=== PATIENT | male | born 1990 | race Caucasian/White ===

== ENCOUNTER → 2019-04-13 09:44 | Outpatient (CLI) | payer OTHER, MEDICAID, SELFPAY | PROVIDERS: Visit Provider Physician Assistant | DX: L03.316 Cellulitis of umbilicus (principal); R19.8 Other specified symptoms and signs involving the digestive system and abdomen | CPT/HCPCS: 87070; 87077; 87186; 87205 ==

== ENCOUNTER → 2019-04-13 09:55 | Outpatient (CLI) | payer OTHER, MEDICAID, SELFPAY | PROVIDERS: Visit Provider Physician Assistant | DX: R10.815 Periumbilic abdominal tenderness (principal); Z53.9 Procedure and treatment not carried out, unspecified reason ==

== ENCOUNTER → 2019-04-14 09:43 | Outpatient (CLI) | payer OTHER, MEDICAID, SELFPAY ==
--- NOTE | 2019-04-14 09:45 | DI.US.S_ITS ---
PROCEDURE: US ABDOMEN LIMITED INDICATIONS: PERIUMBILICAL PAIN W/CELLULITUS AND GUARDING, R/O ABSCESS TECHNIQUE: Real-time focused scanning was performed of the abdomen, with image documentation. COMPARISON: None. FINDINGS: At the umbilicus itself there is a hypoechoic area with increased vascularity measuring up to 1.7 x 1.7 x 1.1 cm, and slightly separate from the umbilicus is a hypoechoic area in the fatty soft tissues measuring up to 1.3 x 1.0 cm, without internal fluid. IMPRESSION: The findings may reflect presence of omphalitis or neoplasm. There is abnormal soft tissue thickening and increased vascularity as can be seen in each of the above potential etiologies. Given these findings very close clinical followup is recommended and a surgical consultation may be warranted. Followup by advance imaging such as CT or MR scanning may become necessary. Dictated by: Meir Bain M.D. on 04/14/2019 at 11:38 Approved by: Meir Bain M.D. on 04/14/2019 at 11:41
== END ==
PROVIDERS: Visit Provider Physician Assistant
DX: L03.316 Cellulitis of umbilicus (principal); R10.33 Periumbilical pain
CPT/HCPCS: 76705

== ENCOUNTER 2019-04-15 17:37 | Emergency (ER) | payer OTHER, MEDICAID, SELFPAY ==
--- NOTE | 2019-04-15 00:18 | DI.CT.S_ITS ---
PROCEDURE: CT ABDOMEN PELVIS W CON INDICATIONS: draining umbilical lesion, see US report TECHNIQUE: After the administration of intravenous contrast, 5 mm thick sections acquired from the diaphragm to the symphysis. 5 mm coronal and sagittal reformats were acquired. For radiation dose reduction, the following was used: automated exposure control, adjustment of mA and/or kV according to patient size. COMPARISON: None. FINDINGS: Image quality: Excellent. ABDOMEN: Lung bases: Lung bases are clear. Heart size is normal. Solid organs: Liver is normal in size and enhancement. Diffuse fatty infiltration of the liver. Gallbladder is within normal limits. Biliary system is non dilated. Pancreas enhances normally. Spleen is normal in size and enhancement. No adrenal nodules. Kidneys demonstrate normal size and enhancement, without hydronephrosis. Peritoneum and bowel: Bowel loops demonstrate normal wall thickness and caliber. No free fluid or air. The appendix is normal. Nodes and vessels: No retroperitoneal or mesenteric adenopathy by size criteria. Aorta and inferior vena cava are normal in size. Miscellaneous: Small fat-containing umbilical hernia. There is mild skin thickening involving the umbilicus which may represent postsurgical change. Trace amount of fluid is noted in the umbilicus and in the abdominal wall deep to the umbilicus. No inflammatory changes identified adjacent to the umbilicus. PELVIS: Genitourinary: Bladder wall thickness is normal. Miscellaneous: No inguinal hernias or adenopathy. Bones: No suspicious bony lesions. No vertebral body compression fractures. IMPRESSION: 1. Mild umbilical skin thickening and trace amount of nonspecific fluid within the umbilicus. No abscess identified. 2. No free intraperitoneal fluid or air. 3. No dilated loops of bowel. 4. Hepatic steatosis. Dictated by: Rabia Conte MD, PhD on 04/16/2019 at 7:33 Approved by: Rabia Conte MD, PhD on 04/16/2019 at 7:38
[2019-04-15 18:15] VITALS: BP 135/85; PULSE 97; RESP 15; TEMP 37.5; O2SAT 97; BMI 34.2
--- NOTE | 2019-04-15 21:39 | ED.WOUNDLAC ---
HPI - Wound/Laceration General Chief Complaint: Wound/Laceration Stated Complaint: states infected umbilical area, now bleeding Time Seen by Provider: 04/15/19 21:39 Source: patient Mode of arrival: Ambulatory History of Present Illness HPI narrative: 28-year-old gentleman presents with drainage and bleeding from his umbilicus. He states he had a laparoscopic surgery at the age of 13 in [place] and has intermittent problems with drainage discharge in bleeding from the umbilical site ever since. Over the last week it has gotten worse he was seen 4 days ago in urgent care and an ultrasound was ordered. He does not have any fevers, he has been having normal bowel movements, no belly pain he is noting bloody and serosanguineous fluid draining from his umbilicus Related Data Allergies Allergy/AdvReac Type Severity Reaction Status Date / Time No Known Drug Allergies Allergy Verified 04/15/19 18:15 Review of Systems Review of Systems Narrative: Denies ? fever ? cough ? cold ? chills ? chest pain ? dyspnea ? orthopnea ? wheezing ? abdominal pain ? change to bowel or bladder habits ? nausea vomiting ? skin changes ? rashes Patient History Medical History Cellulitis (Acute) Exam Narrative Exam Narrative: General: Alert appropriate in no acute distress Respiratory: Able to speak in full sentences, no obvious respiratory distress Skin: No obvious rashes, warm and dry Umbilical area: Bloody serosanguineous discharge without surrounding cellulitis Neurologic: Grossly intact no obvious asymmetries or abnormalities Psych, appropriate insight and affect, cooperative Initial Vital Signs Initial Vital Signs: Vital Signs Temperature 99.5 F 04/15/19 18:15 Pulse Rate 97 H 04/15/19 18:15 Respiratory Rate 15 04/15/19 18:15 Blood Pressure 135/85 04/15/19 18:15 Pulse Oximetry 97 04/15/19 18:15 Course Orders Ordered: ED Orders 04/15/19 23:25 Complete Blood Count AUTO DIFF Stat Comprehensive Metabolic Panel Stat Discontinued Medications Bacitracin (Bacitracin) 2 applic TOP NOW ONE Stop: 04/16/19 02:57 Last Admin: 04/16/19 03:00 Dose: 2 applic Documented by: Vital Signs Vital signs: Vital Signs - 8 hr 04/15/19 22:49 04/16/19 00:38 Pulse Rate 79 77 Respiratory Rate 18 Blood Pressure [Right Arm] 128/86 119/76 Pulse Oximetry 99 99 MDM - Wound/Laceration Medical Records Attestation: I reviewed the patient's medical records. Lab Data Attestation: I reviewed the patient's lab results. Result diagrams: 04/15/19 23:25 04/15/19 23:25 Labs: Lab Results 04/15/19 04/15/19 Range/Units 23:25 23:25 WBC 9.3 (4.5-11.0) X10^3/uL RBC 5.33 (4.5-5.9) X10^6/uL Hgb 15.8 (13.5-17.5) g/dL Hct 46.8 (41-53) % MCV 87.8 (80-100) fL MCH 29.7 (26-34) PG MCHC 33.9 (30-36) % RDW 13.4 (11.6-14.8) % Plt Count 259 (150-400) X10^3/uL Neut % (Auto) 55.3 (50-75) % Lymph % (Auto) 35.3 (25-40) % [place] % (Auto) 7.1 (3-14) % Eos % (Auto) 1.5 L (2-4) % Baso % (Auto) 0.8 (0-2) % Neut # (Auto) 5100 (0939-9304) /uL Lymph # (Auto) 3300 (1433-1877) /uL [place] # (Auto) 700 (0-900) /uL Eos # (Auto) 100 (0-450) /uL Baso # (Auto) 100 (0-100) /uL Sodium 140 (137-145) mmol/L Potassium 3.9 (3.4-5.1) mmol/L Chloride 101 (98-107) mmol/L Carbon Dioxide 28 (22-32) mmol/L BUN 13 (9-20) mg/dL Creatinine 0.90 (0.66-1.25) mg/dL Estimated GFR > 60.0 (>60) mL/min BUN/Creatinine Ratio 14.4 (6-22) Glucose 103 H (70-100) mg/dL Calcium 9.5 (8.4-10.2) mg/dL Total Bilirubin 0.4 (0.2-1.3) mg/dL AST 35 (17-59) IU/L ALT 60 H (<50) IU/L Alkaline Phosphatase 60 (38-126) U/L Total Protein 8.1 (6.3-8.2) g/dL Albumin 4.5 (3.5-5.0) g/dL Globulin 3.6 (1.7-4.1) g/dL Albumin/Globulin Ratio 1.3 (1.0-2.8) Imaging Data US - abdomen: Radiologist's Impression: General: Alert appropriate in no acute distress Respiratory: Able to speak in full sentences, no obvious respiratory distress Skin: No obvious rashes, warm and dry Neurologic: Grossly intact no obvious asymmetries or abnormalities Psych, appropriate insight and affect, cooperative CT scan - abdomen/pelvis: Radiologist's Impression: Radiology read per Dr. Philip Ricardo Mild skin thickening in the region of the umbilicus. There is an associated tiny amount of nonspecific fluid within the umbilical tract Small fat containing umbilical hernia no evidence of bowel containing hernia No evidence of bowel obstruction or free air MDM Narrative Medical decision making narrative: Chronically draining wound of around the umbilicus without cellulitis abscess or fistula. The area is more erythematous so will opt to treat with antibiotics as well as topical antibiotics and general wound care. Referral to [facility] for outpatient consultation for definitive treatment Discharge Plan Departure Patient Disposition: Home Clinical Impression: Open wound of umbilical region Qualifiers: Encounter type: initial encounter Qualified Code(s): S31.105A - Unspecified open wound of abdominal wall, periumbilic region without penetration into peritoneal cavity, initial encounter Instructions: DI for Wound Infection Activity Restrictions/Additional Instructions: Thank you for coming in today The CT scan suggests that there's some swelling in the skin with chronic drainage from your belly button. This is not associated with an abscess or connected to deeper structures inside your belly. I am going to suggest antibiotics, Keflex 500 mg 3 times a day for 7 days as you are having slight increased drainage and pain. I will also recommend that you follow-up with our general surgeon for an outpatient consultation to see what definitive treatment they recommend for the chronically draining belly button If you notice there is more drainage, more pain, increasing redness you do need to return to the emergency room for additional evaluation Referrals: Martín Beckman MD [Physician] -
[2019-04-15 22:49] VITALS: BP 128/86; PULSE 79; O2SAT 99
[2019-04-15 23:37] LABS: Add Manual Diff / Slide Review NO; Basophils Absolute Auto 100 /uL (0-100); Basophils Percent Auto 0.8 % (0-2); Eosinophils Absolute Auto 100 /uL (0-450); Eosinophils Percent Auto 1.5 % (2-4); Hematocrit 46.8 % (41-53); Hemoglobin 15.8 g/dL (13.5-17.5); Lymphocytes Absolute Auto 3300 /uL (1100-4500); Lymphocytes Percent Auto 35.3 % (25-40); Mean Corpuscular HGB Conc 33.9 % (30-36); Mean Corpuscular Hemoglobin 29.7 PG (26-34); Mean Corpuscular Volume 87.8 fL (80-100); Monocytes Absolute Auto 700 /uL (0-900); Monocytes Percent Auto 7.1 % (3-14); Neutrophils Absolute Auto 5100 /uL (1500-7000); Neutrophils Percent Auto 55.3 % (50-75); Platelet Count 259 X10^3/uL (150-400); Red Blood Cell Count 5.33 X10^6/uL (4.5-5.9); Red Cell Distribution Width 13.4 % (11.6-14.8); White Blood Cell Count 9.3 X10^3/uL (4.5-11.0)
[2019-04-15 23:41] LABS: Alanine Aminotransferase 60 IU/L (<50); Albumin 4.5 g/dL (3.5-5.0); Albumin Globulin Ratio 1.3 (1.0-2.8); Alkaline Phosphatase 60 U/L (38-126); Aspartate Aminotransferase 35 IU/L (17-59); BUN Creatinine Ratio 14.4 (6-22); Bilirubin Total 0.4 mg/dL (0.2-1.3); Blood Urea Nitrogen 13 mg/dL (9-20); Calcium 9.5 mg/dL (8.4-10.2); Carbon Dioxide 28 mmol/L (22-32); Chloride 101 mmol/L (98-107); Estimated Glomerular Filt Rate > 60.0 mL/min (>60); Globulin 3.6 g/dL (1.7-4.1); Glucose 103 mg/dL (70-100); HEMOLYSIS < 15 (0-50); Potassium 3.9 mmol/L (3.4-5.1); Sodium 140 mmol/L (137-145); Total Protein 8.1 g/dL (6.3-8.2)
[2019-04-16 00:38] VITALS: BP 119/76; PULSE 77; RESP 18; O2SAT 99
[2019-04-16] MEDS: BACITRACIN OINT 0.9 GM PCKT 2 APPLIC TOP (03:00)
[2019-04-16 03:02] VITALS: BP 117/72; PULSE 72; RESP 18; O2SAT 99
== END 2019-04-16 03:11 | disposition home or self-care (01) ==
PROVIDERS: Emergency Provider Emergency Medicine
DX: S31.105A Unspecified open wound of abdominal wall, periumbilic region without penetration into peritoneal cavity, initial encounter (principal)
CPT/HCPCS: 36415; 74177; 80053; 85025; 99284; Q9967

== ENCOUNTER → 2019-11-20 09:44 | Outpatient (CLI) | payer OTHER, MEDICAID, SELFPAY ==
[2019-11-21 06:10] LABS: COVID19 Sendout Not Detected (Not Detect)
== END ==
PROVIDERS: PCP Nurse Practitioner Family; Visit Provider Physician Assistant
DX: Z11.59 Encounter for screening for other viral diseases (principal)
CPT/HCPCS: 87635

== ENCOUNTER 2019-11-23 06:33 | Day surgery (SDC) | payer OTHER, MEDICAID, SELFPAY ==
[2019-11-19 14:09] VITALS: BMI 41.0
[2019-11-23] VITALS (7 sets, daily range): BP systolic 112–119; BP diastolic 64–79; PULSE 73–85; RESP 12–19; TEMP 36.4–36.9; O2SAT 96–99; BMI 38.9
--- NOTE | 2019-11-23 | PATH_ITS ---
[facility] Accession Number: [id number] . 01 Material submitted: . body - UMBILICAL SINUS TRACT . 02 Diagnosis: Umbilical Sinus Tract, Excision: Consistent with sinus tract. No evidence of neoplasm. [facility] 11/25/2019 1104 Local . 02 Electronically signed: . Sarthak Minaya MD, PhD, Pathologist NPI- [id number] . 01 Gross description: . Received in formalin, labeled umbilical sinus tract, is a 1.1 x 1.0 cm goodwin skin excised to a depth of 2.0 cm. There is a 0.5 x 0.2 cm central defect. The margin is inked blue, the defect is inked black, the specimen is serially sectioned and entirely submitted in cassettes A1 and A2. ([id number]) /[facility] 11/25/2019 1103 Local . 02 Pathologist provided ICD-10: K42.9 . 02 CPT . 316371 Performed at: 01 [facility] [address], [place], [place] [id number] MD Enmanuel Weiss MD Phone: [phone] Performed at: 02 [facility] [address] [place], [place] [id number] MD Caprice Barnett MD Phone: [phone]
--- NOTE | 2019-11-23 07:32 | PM.PREOP ---
Pre-operative Note COVID-19 COVID-19 status: Negative Interval Note History & Physical reviewed/Exam performed by Physician: Yes Changes to H&P: No
[2019-11-23] MEDS: LACTATED RINGERS 1,000 ML 42 ML IV (07:34)
[2019-11-23] MEDS: CEFAZOLIN 2 GM/100 ML FROZ.PIGGY IV (07:50)
--- NOTE | 2019-11-23 08:00 | SUR.OPER ---
Supine on padded OR bed, head on pillow, arms secured on padded arm boards at <90 degrees abduction, legs uncrossed, safety belt at thigh, tape over blanket over lower legs.
[2019-11-23] MEDS: BUPIVACAINE 0.25% (PF) VIAL 30 ML INJ (08:07)
--- NOTE | 2019-11-23 09:00 | P.OP_ITS ---
Operative Date/Time/Diagnoses Date of procedure: 11/23/19 Time of procedure: 09:01 Pre-op diagnosis: Umbilical hernia Umbilical sinus Post-op diagnosis: same Procedure & Clinicians Procedure: Open umbilical hernia repair Same procedure as scheduled: Yes Indications: 29-year-old male who [place] 13 has a subsequent umbilical hernia and a chronic draining umbilical sinus tract. Surgeon: Martín Beckman Anesthesia Type: General Operative Notes Findings: Chronic umbilical sinus tract. Umbilical fascial defect approximately 1/2 cm Specimen(s): other (Umbilical sinus tract) Estimated Blood Loss (mL): 20 Procedure in detail: Patient was brought to the operating room placed supine on the table. Bilateral lower extremity compression devices were applied. General anesthesia was inducedand they were intubated with an endotracheal tube. They received 2 g of Ancef prior to skin incision. They were prepped and draped in sterile fashion. A time-out was performed ensure the correct patient procedure necessary equipment within the operating room. A curvilinear incision was made inferior to the umbilicus. The subcutaneous tissues were divided. The umbilical hernia was identified and was dissected off the umbilicus and circumferentially. The umbilical hernia sac was opened carefully using [place] and contained viable omentum. There was also a chronic umbilical sinus tract attached to the umbilicus that contained some purulence material that was excised off and passed off the field as specimen labeled sinus tract. The hernia sac was then closed with 3 0 Vicryl suture. The sac was reduced into the abdomen and the fascia was cleared from above. The main fascial defect was 1.5 cm in diameter . The fascial edges were then reapproximated with a [id number] 0 PDS suture. The subcutaneous tissues were reapproximated using 3 0 Vicryl skin closed with 4 0 Monocryl upon by the application of Dermabond and Steri-Strips. Sponge instrument count at the end of the operation was correct. Patient tolerated procedure well was extubated and transferred to postoperative care unit in stable condition. Complications: none Post-operative Condition: stable Disposition: same day surgery
[2019-11-23] MEDS: OXYCODONE/ACETAMINOPHEN 5/325 TABLET 1 TAB PO (09:28)
--- NOTE | 2019-11-23 09:35 | SUR.PHASEII ---
Medicated for pain, friend brought in d/c instructions discussed, all voiced an understanding.
== END 2019-11-23 10:00 | disposition home or self-care (01) ==
PROVIDERS: PCP Nurse Practitioner Family; Referring Provider Nurse Practitioner Family; Visit Provider Surgery
PROC: (CPT 49585; principal; 2019-11-23 07:45)
DX: K42.9 Umbilical hernia without obstruction or gangrene (principal); T81.83XA Persistent postprocedural fistula, initial encounter; E66.01 Morbid (severe) obesity due to excess calories; Z87.891 Personal history of nicotine dependence
CPT/HCPCS: 49585; J0690; J1100; J2405; J2704; J3010

== ENCOUNTER 2019-11-27 13:01 | Inpatient (IN) | payer OTHER, MEDICAID, SELFPAY ==
[2019-11-27] VITALS (22 sets, daily range): BP systolic 105–153; BP diastolic 54–91; PULSE 84–108; RESP 9–19; TEMP 35.5–37.9; O2SAT 94–99; BMI 25.4; BMI 39.8
--- NOTE | 2019-11-27 13:32 | DI.RAD.S_ITS ---
PROCEDURE: XR CHEST 1V INDICATIONS: suspected sepsis TECHNIQUE: One view of the chest was acquired. COMPARISON: [facility], CT, CT ABDOMEN PELVIS W CON, 04/16/2019, 0:08. FINDINGS: Surgical changes and devices: None. Lungs and pleura: An incomplete inspiratory result is noted, causing a crowded appearance to the lung markings. No focal infiltrates are seen. No pneumothorax or significant pleural effusions are seen. Mediastinum: Mediastinal contours appear normal. Heart size is normal. Bones and chest wall: No suspicious bony lesions. Overlying soft tissues appear unremarkable. IMPRESSION: Limited portable chest examination, without a significant cardiopulmonary abnormality identified. Dictated by: Samson Diaz M.D. on 11/27/2019 at 13:21 Approved by: Samson Diaz M.D. on 11/27/2019 at 13:22
[2019-11-27 13:39] LABS: Add Manual Diff / Slide Review NO; Basophils Absolute Auto 0 /uL (0-100); Basophils Percent Auto 0.3 % (0-2); Eosinophils Absolute Auto 0 /uL (0-450); Eosinophils Percent Auto 0.1 % (2-4); Hematocrit 46.7 % (41-53); Hemoglobin 15.6 g/dL (13.5-17.5); Lymphocytes Absolute Auto 1000 /uL (1100-4500); Lymphocytes Percent Auto 6.2 % (25-40); Mean Corpuscular HGB Conc 33.4 % (30-36); Mean Corpuscular Hemoglobin 29.8 PG (26-34); Mean Corpuscular Volume 89.3 fL (80-100); Monocytes Absolute Auto 1600 /uL (0-900); Neutrophils Absolute Auto 13500 /uL (1500-7000); Neutrophils Percent Auto 83.4 % (50-75); Platelet Count 257 X10^3/uL (150-400); Red Blood Cell Count 5.23 X10^6/uL (4.5-5.9); Red Cell Distribution Width 13.5 % (11.6-14.8); White Blood Cell Count 16.1 X10^3/uL (4.5-11.0)
[2019-11-27 13:41] LABS: INR 1.3 (0.9-1.3); Prothrombin Time 14.6 SECONDS (10.1-12.7)
--- NOTE | 2019-11-27 13:42 | ED_ITS ---
HPI - Fever General Chief Complaint: Fever Stated Complaint: Fever/Abdominal Pain post surgery Time Seen by Provider: 11/27/19 13:32 Source: patient Mode of arrival: Ambulatory Limitations: no limitations History of Present Illness HPI Narrative: Patient postop day 4 status post open umbilical hernia repair. Fever started 2 days ago. Watery diarrhea with nausea. Complains of headache as well. Abdominal surgical area painful and red. Small amount of discharge seeping through Steri-Strips. Denies any cough cold congestion sore throat. Related Data Previous Rx's Medication Instructions Recorded acetaminophen [Tylenol] 650 mg PO QID PRN #60 cap 11/23/19 oxycodone 5 mg PO Q6H PRN #30 tab 11/23/19 Allergies Allergy/AdvReac Type Severity Reaction Status Date / Time No Known Drug Allergies Allergy Verified 11/27/19 13:16 Review of Systems Review of Systems Narrative: GENERAL: Complains chills, fatigue, malaise, fever, sweats. HEENT: Denies sinus pain, ear pain, sore throat, difficulty swallowing, dizzin ess. RESPIRATORY: Denies dyspnea, cough, wheezing, hemoptysis, sputum. CARDIOVASCULAR: Denies chest pain, palpitations, orthopnea, edema, GASTROINTESTINAL: Complains of nausea, denies vomiting, complains of abdominal pain, diarrhea, denies constipation, melena. : Denies dysuria, frequency, incontinence, hematuria, urinary retention. MUSCULOSKELETAL: denies weakness, joint pain, or bony pain SKIN: Denies rash, skin lesions NEUROLOGIC: Denies weakness, headache, numbness, change in speech, confusion, seizures, incoordination. PSYCHIATRIC: No concerning psychosocial issues. ROS Unobtainable: All systems reviewed & are unremarkable except as noted in HPI and below Patient History Medical History ADHD (Chronic) Cellulitis (Acute) Obesity (Acute) Surgical History Anesthesia (Resolved) History of abdominoplasty (Resolved) Social History household members: friend(s) Smoking Status: Former smoker Smoking Status: Former smoker alcohol intake frequency: a few times a month Substance Use Type: does not use Exam Narrative Exam Narrative: GENERAL: patient appears stated age. Well-nourished, well- developed patient, in no distress, not toxic HEAD: Atraumatic. Normocephalic. EYES: Pupils equal round and reactive. Extraocular motions intact. No scleral icterus. No injection or drainage. ENT: Nose without bleeding, purulent drainage. Throat without erythema, tonsillar hypertrophy or exudate. Airway patent. NECK: Trachea midline. Non tender CARDIOVASCULAR: Regular rate and rhythm without murmurs, gallops, or rubs. RESPIRATORY: Clear to auscultation. Breath sounds equal bilaterally. No wheezes, rales, or rhonchi. GASTROINTESTINAL: Abdomen soft, bowel sounds present. No peritoneal signs. There is erythema extending outwards from incision site at the umbilical area. Palm size. Odorous smell around this area. Slight greenish discharge from incision site underneath the Steri-Strips EXTREMITIES: No edema or joint tenderness. BACK: Nontender without deformity or crepitance. No flank tenderness. NEURO: AOx4. PSYCH: Not anxious, is cooperative Initial Vital Signs Initial Vital Signs: Vital Signs Temperature 100.2 F H 11/27/19 13:16 Pulse Rate 108 H 11/27/19 13:16 Respiratory Rate 18 11/27/19 13:16 Blood Pressure 138/74 11/27/19 13:16 Pulse Oximetry 96 11/27/19 13:16 Course Course Course Narrative: Patient evaluated by surgeon in department and will admit Decision to Admit Date: 11/27/19 Decision to Admit time: 14:21 Orders Ordered: ED Orders 11/27/19 13:25 Complete Blood Count AUTO DIFF Stat Comprehensive Metabolic Panel Stat Lactate (Lactic Acid) Stat Lipase Stat Partial Thromboplastin Time Stat Procalcitonin Stat Prothrombin Time INR Stat 11/27/19 13:32 XR chest 1V Stat EKG-12 Lead Stat 11/27/19 13:49 CT abdomen pelvis w con Stat 11/27/19 13:50 Blood Culture Stat 11/27/19 14:18 COVID19 -ED/INPAT/OR/L&D Stat Lactated Ringer's (Lactated Ringers) 1,000 mls @ 125 mls/hr IV CONT USHA Last Admin: 11/27/19 16:26 Dose: 125 mls/hr Documented by: SLUND Cefazolin Sodium 3 gm/ Sodium (Chloride) 100 mls @ 200 mls/hr IV Q8H USHA Stop: 11/28/19 00:29 Last Admin: 11/27/19 16:46 Dose: 200 mls/hr Documented by: JOANN Morphine Sulfate (Morphine) 4 mg IV Q4HR PRN PRN Reason: Pain, Severe (7-10) Naloxone HCl (Narcan) 0.2 mg IV Q2MIN PRN PRN Reason: Opiate Reversal Ondansetron HCl (Zofran) 4 mg IV Q4HR PRN PRN Reason: Nausea And Vomiting Discontinued Medications Enoxaparin Sodium (Lovenox) 40 mg SUBCUT NOW ONE Stop: 11/27/19 15:53 Last Admin: 11/27/19 16:45 Dose: 40 mg Documented by: JOANN Sodium Chloride (Normal Saline 0.9%) 1,000 mls @ 1,000 mls/hr IV BOLUS ONE Stop: 11/27/19 14:31 Last Admin: 11/27/19 16:25 Dose: Not Given Documented by: JOANN Sodium Chloride (Normal Saline 0.9%) 2,626.29 mls @ 875.43 mls/hr 30 ml/kg infuse over 3 hr (2626.29 ml) IV NOW ONE Stop: 11/27/19 16:37 Last Infusion: 11/27/19 15:09 Dose: 875.43 mls/hr Documented by: Admin: 11/27/19 13:45 Dose: 875.43 mls/hr Documented by: CAMI Piperacillin/Tazobactam/Dextrose (Zosyn) 4.5 gm in 100 mls @ 200 mls/hr IV NOW ONE Stop: 11/27/19 14:07 Last Infusion: 11/27/19 14:30 Dose: 0 mls/hr Documented by: Admin: 11/27/19 13:57 Dose: 200 mls/hr Documented by: CAMI Ibuprofen (Advil) 800 mg PO NOW ONE Stop: 11/27/19 13:42 Last Admin: 11/27/19 13:46 Dose: 800 mg Documented by: CAMI Reevaluation(s) Reevaluation #1: No new issues. Labs and imaging pending but has been admitted Time: 14:21 Consultations Consultation #1: Spoke with surgeon Dr. Bello, he has seen patient. Will admit Time: 14:22 Vital Signs Vital signs: Vital Signs - 8 hr 11/27/19 13:16 11/27/19 13:33 11/27/19 13:48 Temperature 100.2 F H Pulse Rate 108 H 105 H 103 H Respiratory Rate 18 19 Blood Pressure 138/74 153/67 H Pulse Oximetry 96 96 99 11/27/19 14:00 11/27/19 14:01 Temperature Pulse Rate 99 H 99 H Respiratory Rate 9 L 11 L Blood Pressure 118/76 Pulse Oximetry 99 98 MDM - Fever Differential Diagnosis Differential diagnosis: Likely community acquired pneumonia, sepsis and other (Postop wound infection) Medical Records Attestation: I reviewed the patient's medical records. Lab Data Attestation: I reviewed the patient's lab results. Result diagrams: 11/27/19 13:25 11/27/19 13:25 Labs: Lab Results 11/27/19 11/27/19 11/27/19 Range/Units 13:25 13:25 13:25 WBC 16.1 H (4.5-11.0) X10^3/uL RBC 5.23 (4.5-5.9) X10^6/uL Hgb 15.6 (13.5-17.5) g/dL Hct 46.7 (41-53) % MCV 89.3 (80-100) fL MCH 29.8 (26-34) PG MCHC 33.4 (30-36) % RDW 13.5 (11.6-14.8) % Plt Count 257 (150-400) X10^3/uL Neut % (Auto) 83.4 H (50-75) % Lymph % (Auto) 6.2 L (25-40) % Granite % (Auto) 10.0 (3-14) % Eos % (Auto) 0.1 L (2-4) % Baso % (Auto) 0.3 (0-2) % Neut # (Auto) 19249 H (8453-1119) /uL Lymph # (Auto) 1000 L (2302-4649) /uL Granite # (Auto) 1600 H (0-900) /uL Eos # (Auto) 0 (0-450) /uL Baso # (Auto) 0 (0-100) /uL PT 14.6 H (10.1-12.7) SECONDS INR 1.3 (0.9-1.3) APTT 30 (26.4-36.2) SECONDS Sodium (137-145) mmol/L Potassium (3.4-5.1) mmol/L Chloride (98-107) mmol/L Carbon Dioxide (22-32) mmol/L BUN (9-20) mg/dL Creatinine (0.66-1.25) mg/dL Estimated GFR (>60) mL/min BUN/Creatinine Ratio (6-22) Glucose (70-100) mg/dL Lactate (0.7-2.1) mmol/L Calcium (8.4-10.2) mg/dL Total Bilirubin (0.2-1.3) mg/dL AST (17-59) IU/L ALT (<50) IU/L Alkaline Phosphatase (38-126) U/L Total Protein (6.3-8.2) g/dL Albumin (3.5-5.0) g/dL Globulin (1.7-4.1) g/dL Albumin/Globulin Ratio (1.0-2.8) Lipase (23-300) U/L Procalcitonin 0.21 (<0.5) ng/mL COVID-19 PCR (Negative) 11/27/19 11/27/19 11/27/19 Range/Units 13:25 13:25 14:18 WBC (4.5-11.0) X10^3/uL RBC (4.5-5.9) X10^6/uL Hgb (13.5-17.5) g/dL Hct (41-53) % MCV (80-100) fL MCH (26-34) PG MCHC (30-36) % RDW (11.6-14.8) % Plt Count (150-400) X10^3/uL Neut % (Auto) (50-75) % Lymph % (Auto) (25-40) % Granite % (Auto) (3-14) % Eos % (Auto) (2-4) % Baso % (Auto) (0-2) % Neut # (Auto) (3404-3268) /uL Lymph # (Auto) (0738-3870) /uL Granite # (Auto) (0-900) /uL Eos # (Auto) (0-450) /uL Baso # (Auto) (0-100) /uL PT (10.1-12.7) SECONDS INR (0.9-1.3) APTT (26.4-36.2) SECONDS Sodium 135 L (137-145) mmol/L Potassium 4.2 (3.4-5.1) mmol/L Chloride 100 (98-107) mmol/L Carbon Dioxide 25 (22-32) mmol/L BUN 11 (9-20) mg/dL Creatinine 0.81 (0.66-1.25) mg/dL Estimated GFR > 60.0 (>60) mL/min BUN/Creatinine Ratio 13.6 (6-22) Glucose 105 H (70-100) mg/dL Lactate 1.4 (0.7-2.1) mmol/L Calcium 9.4 (8.4-10.2) mg/dL Total Bilirubin 1.0 (0.2-1.3) mg/dL AST 41 (17-59) IU/L ALT 81 H (<50) IU/L Alkaline Phosphatase 97 (38-126) U/L Total Protein 8.1 (6.3-8.2) g/dL Albumin 4.2 (3.5-5.0) g/dL Globulin 3.9 (1.7-4.1) g/dL Albumin/Globulin Ratio 1.1 (1.0-2.8) Lipase 68 (23-300) U/L Procalcitonin (<0.5) ng/mL COVID-19 PCR Negative (Negative) Imaging Data Chest x-ray: Radiologist's Impression: [address] [address] XRay Report Signed Patient: Kayden Crockett [facility]#: [id number] : 1990Acct:[id number] Age/Sex: te of Service: 11/27/19 Loc: VR16M-0 Accession Number: [id number] Procedure: XR chest 1V Ordering Provider: Ari Urbina MD PROCEDURE: XR CHEST 1V INDICATIONS: suspected sepsis TECHNIQUE: One view of the chest was acquired. COMPARISON: [facility], CT, CT ABDOMEN PELVIS W CON, 04/16/2019, 0:08. FINDINGS: Surgical changes and devices: None. Lungs and pleura: An incomplete inspiratory result is noted, causing a crowded appearance to the lung markings. No focal infiltrates are seen. No pneumothorax or significant pleural effusions are seen. Mediastinum: Mediastinal contours appear normal. Heart size is normal. Bones and chest wall: No suspicious bony lesions. Overlying soft tissues appear unremarkable. IMPRESSION: Limited portable chest examination, without a significant cardiopulmonary abnormality identified. Dictated by: Samson Diaz M.D. on 11/27/2019 at 13:21 Approved by: Samson Diaz M.D. on 11/27/2019 at 13:22 CT scan - abdomen/pelvis: Radiologist's Impression: [place] [address] CT Scan Report Signed Patient: Kayden Crockett [facility]#: [id number] : 1990Acct:[id number] Age/Sex: MDate of Service: 11/27/19 Loc: OM82K-0 Accession Number: [id number] Procedure: CT abdomen pelvis w con Ordering Provider: Ari Urbina MD PROCEDURE: CT ABDOMEN PELVIS W CON INDICATIONS: IV contrast only/abdominal pain/fever/postop TECHNIQUE: After the administration of intravenous contrast, 5 mm thick sections acquired from the diaphragm to the symphysis. 5 mm coronal and sagittal reformats were acquired. For radiation dose reduction, the following was used: automated exposure control, adjustment of mA and/or kV according to patient size. COMPARISON: [facility], CT, CT ABDOMEN PELVIS W CON, 04/16/2019, 0:08. FINDINGS: Image quality: Excellent. ABDOMEN: Lung bases: Lung bases are clear. Heart size is normal. Solid organs: Liver is normal in size and enhancement. Gallbladder normal . Biliary system is non dilated. Pancreas enhances normally. Spleen is normal in size and enhancement. No adrenal nodules. Kidneys demonstrate normal size and enhancement, without hydronephrosis. Peritoneum and bowel: Bowel loops demonstrate normal wall thickness and caliber. No free fluid or air. Nodes and vessels: No retroperitoneal or mesenteric adenopathy by size criteria. Aorta and inferior vena cava are normal in size. Miscellaneous: No ventral hernias there is a inflammatory process near the umbilicus, at the abdomen/pelvis junction, containing fluid and gas, virtually extending to the skin surface which is thickened, and edematous. This appears to represent an area of phlegmon/abscess formation measuring up to 5.8 cm transverse and 6.33 cm AP, with a craniocaudad length of up to 6.0 cm posteriorly ventral to the rectus musculature, and tapering to the skin surface. PELVIS: Genitourinary: Bladder wall thickness is normal. Miscellaneous: No inguinal hernias or adenopathy. Bones: No suspicious bony lesions. No vertebral body compression fractures. IMPRESSION: Ventral body wall early abscess formation, centered on the area of cutaneous thickening and edema. Dictated by: Meir Bain M.D. on 11/27/2019 at 15:23 Approved by: Meir Bain M.D. on 11/27/2019 at 15:26 ECG Data Attestation: I personally reviewed and interpreted this ECG as follows: Interpretation: Sinus tachycardia otherwise normal EKG. Ventricular rate 105 MDM Narrative Medical decision making narrative: Patient to be admitted. Fever present. Cultures taken. Fever control done. Antibiotics started. Surgeon has evaluated and is admitting to his service, and planning for surgery. CT scan resulted Discharge Plan Departure Patient Disposition: Admitted as Observation Clinical Impression: Abdominal pain in male Discharge Date/Time: 11/27/19 15:36 Referrals: George Graff ARNP [Primary Care Provider] - Admit Date/Time: 11/27/19 14:21 Admit Provider: Chuck Bello
[2019-11-27 13:44] LABS: PTT Partial Thromboplastin Tim 30 SECONDS (26.4-36.2)
[2019-11-27] MEDS: SODIUM CHLORIDE 0.9% 875.43 ML IV (13:45)
[2019-11-27] MEDS: IBUPROFEN 400 MG TABLET 800 MG PO (13:46)
[2019-11-27 13:47] LABS: Alanine Aminotransferase 81 IU/L (<50); Albumin 4.2 g/dL (3.5-5.0); Albumin Globulin Ratio 1.1 (1.0-2.8); Alkaline Phosphatase 97 U/L (38-126); Aspartate Aminotransferase 41 IU/L (17-59); BUN Creatinine Ratio 13.6 (6-22); Blood Urea Nitrogen 11 mg/dL (9-20); Calcium 9.4 mg/dL (8.4-10.2); Carbon Dioxide 25 mmol/L (22-32); Chloride 100 mmol/L (98-107); Estimated Glomerular Filt Rate > 60.0 mL/min (>60); Globulin 3.9 g/dL (1.7-4.1); Glucose 105 mg/dL (70-100); HEMOLYSIS < 15 (0-50); Lipase 68 U/L (23-300); Potassium 4.2 mmol/L (3.4-5.1); Sodium 135 mmol/L (137-145); Total Protein 8.1 g/dL (6.3-8.2)
[2019-11-27 13:48] LABS: Lactate (Lactic Acid) 1.4 mmol/L (0.7-2.1)
--- NOTE | 2019-11-27 13:49 | DI.CT.S_ITS ---
PROCEDURE: CT ABDOMEN PELVIS W CON INDICATIONS: IV contrast only/abdominal pain/fever/postop TECHNIQUE: After the administration of intravenous contrast, 5 mm thick sections acquired from the diaphragm to the symphysis. 5 mm coronal and sagittal reformats were acquired. For radiation dose reduction, the following was used: automated exposure control, adjustment of mA and/or kV according to patient size. COMPARISON: [facility], CT, CT ABDOMEN PELVIS W CON, 04/16/2019, 0:08. FINDINGS: Image quality: Excellent. ABDOMEN: Lung bases: Lung bases are clear. Heart size is normal. Solid organs: Liver is normal in size and enhancement. Gallbladder normal . Biliary system is non dilated. Pancreas enhances normally. Spleen is normal in size and enhancement. No adrenal nodules. Kidneys demonstrate normal size and enhancement, without hydronephrosis. Peritoneum and bowel: Bowel loops demonstrate normal wall thickness and caliber. No free fluid or air. Nodes and vessels: No retroperitoneal or mesenteric adenopathy by size criteria. Aorta and inferior vena cava are normal in size. Miscellaneous: No ventral hernias there is a inflammatory process near the umbilicus, at the abdomen/pelvis junction, containing fluid and gas, virtually extending to the skin surface which is thickened, and edematous. This appears to represent an area of phlegmon/abscess formation measuring up to 5.8 cm transverse and 6.33 cm AP, with a craniocaudad length of up to 6.0 cm posteriorly ventral to the rectus musculature, and tapering to the skin surface. PELVIS: Genitourinary: Bladder wall thickness is normal. Miscellaneous: No inguinal hernias or adenopathy. Bones: No suspicious bony lesions. No vertebral body compression fractures. IMPRESSION: Ventral body wall early abscess formation, centered on the area of cutaneous thickening and edema. Dictated by: Meir Bain M.D. on 11/27/2019 at 15:23 Approved by: Meir Bain M.D. on 11/27/2019 at 15:26
[2019-11-27] MEDS: PIPERACILLIN-TAZO 4.5 GM/100 ML FROZ.PIGGY IV (13:57)
[2019-11-27 14:06] LABS: Procalcitonin 0.21 ng/mL (<0.5)
[2019-11-27 14:49] LABS: COVID19 -Nasal RAPID Negative (Negative)
--- NOTE | 2019-11-27 15:08 | PM.HP.1 ---
History of Present Illness History of Present Illness Date Patient Seen: 11/27/19 Time Patient Seen: 15:08 Chief complaint: Fever/Abdominal Pain post surgery Narrative: The patient is a gentleman who had an umbilical hernia repaired on the . He has developed a redness pain and drainage and a low-grade fever in the last air to. The drainage has been a large amount of foul-smelling thin fluid. Last p.o. intake was to apples this morning at about 8:00 a.m.. Patient History Medical History ADHD (Chronic) Cellulitis (Acute) Obesity (Acute) Surgical History Anesthesia (Resolved) History of abdominoplasty (Resolved) Family & Social History Social History: household members friend(s) Safety & Behavioral: Feels Safe in Current Yes Environment Tobacco & Substance use: Smoking Status Former smoker alcohol intake frequency a few times a month Substance Use Type does not use Meds Home Medications and Allergies Home Medications Medication Instructions Recorded Confirmed Type acetaminophen [Tylenol] 650 mg PO QID PRN #60 cap 11/23/19 Rx oxycodone 5 mg PO Q6H PRN #30 tab 11/23/19 Rx Allergies Allergy/AdvReac Type Severity Reaction Status Date / Time No Known Drug Allergies Allergy Verified 11/27/19 13:16 Review of Systems Review of Systems Narrative: No chest pain. No breathing issues. No black or bloody bowel movements. No seizures or blackouts. He is quite anxious and has ADHD. He is frightened of needles Exam Vital Signs (past 8 hours): - 11/27/19 13:16 11/27/19 13:33 11/27/19 13:48 Temperature 100.2 F H Pulse Rate 108 H 105 H 103 H Respiratory Rate 18 19 Blood Pressure 138/74 153/67 H Pulse Oximetry 96 96 99 11/27/19 14:00 11/27/19 14:01 Temperature Pulse Rate 99 H 99 H Respiratory Rate 9 L 11 L Blood Pressure 118/76 Pulse Oximetry 99 98 Oxygen Delivery Method Room Air Objective Labs Result Diagrams: 11/27/19 13:25 11/27/19 13:25 Labs: Laboratory Results - last 24 hr 11/27/19 11/27/19 11/27/19 13:25 13:25 13:25 WBC 16.1 H RBC 5.23 Hgb 15.6 Hct 46.7 MCV 89.3 MCH 29.8 MCHC 33.4 RDW 13.5 Plt Count 257 Neut % (Auto) 83.4 H Lymph % (Auto) 6.2 L Bureau % (Auto) 10.0 Eos % (Auto) 0.1 L Baso % (Auto) 0.3 Neut # (Auto) 21428 H Lymph # (Auto) 1000 L Bureau # (Auto) 1600 H Eos # (Auto) 0 Baso # (Auto) 0 PT 14.6 H INR 1.3 APTT 30 Sodium Potassium Chloride Carbon Dioxide BUN Creatinine Estimated GFR BUN/Creatinine Ratio Glucose Lactate Calcium Total Bilirubin AST ALT Alkaline Phosphatase Total Protein Albumin Globulin Albumin/Globulin Ratio Lipase Procalcitonin 0.21 COVID-19 PCR 11/27/19 11/27/19 11/27/19 13:25 13:25 14:18 WBC RBC Hgb Hct MCV MCH MCHC RDW Plt Count Neut % (Auto) Lymph % (Auto) Bureau % (Auto) Eos % (Auto) Baso % (Auto) Neut # (Auto) Lymph # (Auto) Bureau # (Auto) Eos # (Auto) Baso # (Auto) PT INR APTT Sodium 135 L Potassium 4.2 Chloride 100 Carbon Dioxide 25 BUN 11 Creatinine 0.81 Estimated GFR > 60.0 BUN/Creatinine Ratio 13.6 Glucose 105 H Lactate 1.4 Calcium 9.4 Total Bilirubin 1.0 AST 41 ALT 81 H Alkaline Phosphatase 97 Total Protein 8.1 Albumin 4.2 Globulin 3.9 Albumin/Globulin Ratio 1.1 Lipase 68 Procalcitonin COVID-19 PCR Negative Assessment & Plan Assessment & Plan narrative: Obese gentleman(morbid with a BMI of 40) with what appears to be an infected wound. He had drainage from this wound chronically and at the time of operation was noted to have a sinus tract. Cultures taken of that in March showed a strep and staph sensitive to everything. Most likely that is still the organism involved. Will begin Ancef and because of his weight given 3 g q 8 h. I wanted to numb him up and drain this in the emergency room but he adamantly refused saying he would have to be put out for that. I told him that there were to emergency the head of him in the could be quite late but he was still insistent upon waiting. Therefore we will bring amended and begin IV antibiotics and keep him NPO and taken to the operating room later today. He could have a dehiscence he could have just liquified fat which is what I am seeing coming out. There is redness however and is low-grade temperature all of which suggests an infectious process. I informed him that he will probably have to have the wound left open and have it packed.
--- NOTE | 2019-11-27 15:33 | PC.NURSE ---
Pt SS drained into urine clean catch. Disposed. Will still need to collect.
--- NOTE | 2019-11-27 16:01 | PC.ADMIT ---
[address] Admission Note: The patient,Kayden Rendon,29 y/o, was given written information regarding hospital policies, unit procedures and contact persons. Patient's smoking status: Former smoker. Pt arrived from ED A/O. VSS. Oriented to room and call system. Calf scd's applied. Pt verbalized he will call for needs. Supportive friend at bedside. Vital Signs - 8 hr 11/27/19 13:16 11/27/19 13:33 11/27/19 13:48 Temperature 100.2 F H Pulse Rate 108 H 105 H 103 H Respiratory Rate 18 19 Blood Pressure 138/74 153/67 H Pulse Oximetry 96 96 99 11/27/19 14:00 11/27/19 14:01 11/27/19 14:41 Temperature Pulse Rate 99 H 99 H 95 H Respiratory Rate 9 L 11 L Blood Pressure 118/76 Pulse Oximetry 99 98 96 11/27/19 14:47 11/27/19 15:00 11/27/19 15:01 Temperature Pulse Rate 92 H 88 92 H Respiratory Rate Blood Pressure 117/61 106/58 L Pulse Oximetry 98 97 97 11/27/19 15:30 11/27/19 15:32 11/27/19 15:40 Temperature 97.2 F L Pulse Rate 87 88 89 Respiratory Rate 18 Blood Pressure 112/63 127/84 Pulse Oximetry 98 97 98
[2019-11-27] MEDS: LACTATED RINGERS 1,000 ML 125 ML IV ×2 (16:26→23:01)
[2019-11-27] MEDS: ENOXAPARIN 40 MG/0.4 ML SYRINGE SUBCUT (16:45)
[2019-11-27] MEDS: CEFAZOLIN VIAL 3 GM in SODIUM CHLORIDE 0.9% 100 ML 200 ML IV (16:46)
--- NOTE | 2019-11-27 17:52 | PM.PREOP ---
Pre-operative Note COVID-19 COVID-19 status: Negative Result date/Date tested (Pos, Neg/Pending): 11/27/19 Interval Note History & Physical reviewed/Exam performed by Physician: Yes Changes to H&P: No
[2019-11-27] MEDS: BUPIVACAINE 0.5% (PF) VIAL 30 ML INJ (21:15)
[2019-11-27] MEDS: CEFAZOLIN 2 GM/100 ML FROZ.PIGGY IV (21:15)
--- NOTE | 2019-11-27 21:27 | SUR.OPER ---
Supine on padded OR bed, head on pillow, arms secured on padded arm boards at <90 degrees abduction, legs uncrossed, safety belt at thigh, tape over blanket over lower legs.
--- NOTE | 2019-11-27 22:26 | PM.OP.1 ---
Operative Date/Time/Diagnoses Date of procedure: 11/27/19 Time of procedure: 22:26 Pre-op diagnosis: Wound infection Post-op diagnosis: same Procedure & Clinicians Procedure: Wound exploration and sharp debridement of tissue. Removal of suture used to close the hernia defect. Same procedure as scheduled: Yes Indications: Patient draining purulent material from an incision created to repair hernia on November 22 by another provider. Surgeon: Chuck Bello Click Yes if Unassisted: Yes Anesthesia Type: General Operative Notes Findings: Brown fluid foul-smelling draining from the wound. Wall of the cavity necrotic. The suture appeared to be spanning a water of did tissue so it was removed. This tissue appeared to probably be peritoneal sac. Closure Type: not applicable (Wound left open) Specimen(s): other (Cultures) Prosthetic devices, grafts, tissues, transplants, or devices: None Estimated Blood Loss (mL): 50 Blood products transfused: none Procedure in detail: The patient was placed supine on the operating room table underwent general LMA anesthesia. He was prepped and draped in the usual fashion. Sutures removed brown fluid was leaking prior to suture removal. Once they were removed I cultured the deep fluid and suctioned it out. Wall cavity was necrotic. The base of the wound also has some necrotic tissue. I removed this. I identified this suture spanning the hernia defect and protruding around it was a water of soft tissue. Initially a could tell what I was dealing with but after debriding tissue in finding the fascial edge it was clear that this was material coming up from the edge of the fascial repair. I soon and it was probably hernia sac. I debrided the parts that were . I could not into the peritoneal cavity and chose not to attempt to do so for fear of spreading this necrotizing infection further. I decided not to debride and repair this hernia but to leave it open. The tissues had no given them, they were indurated and fixed. I could not safely identify structures that I might if there was no necrosis and infection involved. Rather than risk injury to intestine and risk spread into the peritoneal cavity I decided to take all of the tension off of the tissues and remove the tissue and pack the wound. This was accomplished after copious irrigation of the wound. Complications: none Post-operative Condition: stable Disposition: PACU Plan for aftercare: Admit for IV antibiotic
--- NOTE | 2019-11-27 22:45 | PC.NURSE ---
Pt arrived back on unit at approx 2250. A and O x 4, denying pain, advised wound is dressed and packed, not closed. VSS. NSR. LS clear.
--- NOTE | 2019-11-27 22:57 | SUR.PHASEI ---
pt transferred to acute care floor in stable condition. pt alert and talking to RN during transport. Bedside report given to ARJUN Wellington upon arrival. VSS. Transferred care of pt to AC RN at that time.
[2019-11-27] MEDS: SODIUM CHLORIDE 0.9% 250 ML 21 ML IV (23:30)
[2019-11-27] MEDS: metroNIDAZOLE 500 MG/100 ML PIGGYBACK 100 MG IV (23:38)
[2019-11-28] VITALS (9 sets, daily range): BP systolic 110–169; BP diastolic 60–85; PULSE 78–88; RESP 16–20; TEMP 35.2–37.2; O2SAT 95–100
[2019-11-28] MEDS: cefTRIAXone 1,000 MG in DEXTROSE 5 % IN WATER 50 ML 100 ML IV (01:01)
[2019-11-28] MEDS: metroNIDAZOLE 500 MG/100 ML PIGGYBACK 100 MG IV ×3 (06:40→22:53)
[2019-11-28] MEDS: SODIUM CHLORIDE 0.9% FLUSH 10 ML IV (06:40)
[2019-11-28] MEDS: OXYCODONE/ACETAMINOPHEN 5/325 TABLET 2 TAB PO ×3 (06:42→20:53)
[2019-11-28] MEDS: ENOXAPARIN 40 MG/0.4 ML SYRINGE SUBCUT (09:15)
[2019-11-28] MEDS: CEFTRIAXONE 1 GM/50 ML FROZ.PIGGY IV (12:03)
[2019-11-28] MEDS: HYDROMORPHONE 2 MG INJ 1 MG IV (14:23)
--- NOTE | 2019-11-28 14:43 | P.PN_ITS ---
Subjective Subjective Date Patient Seen: 11/28/19 Time Patient Seen: 14:43 Interval history: Patient has no pain when not disturbed. I talked to him in the postop area of but he has no recollection of that conversation which is not surprising. I once again went over with the fact that I had to debride tissue and I had to remove the stitches that constituted his hernia repair. Thus his hernia will be back. I could not close it safely. He is upset as 1 m ight expect. Exam Vital Signs (past 8 hours): - 11/28/19 08:17 11/28/19 08:23 11/28/19 12:17 Temperature 97.2 F L 97.1 F L Pulse Rate 81 79 Respiratory Rate 16 16 Blood Pressure 169/80 H 132/85 Pulse Oximetry 97 95 96 Oxygen Delivery Method Room Air Oxygen Flow Rate 0 Narrative Exam Narrative: His cellulitis from his abdominal wall appears to have gone away. I removed his packing after giving him IV Dilaudid. He tolerated it much better than I expected but it was still quite painful. Within 2 or 3 minutes after completing the dressing care his pain was gone. The wound looks pretty much as expected. He will need daily packing. Awaiting the culture results. Multiple organisms appeared to be seen on Gram stain. He is on broad-spectrum coverage. Objective Labs Result Diagrams: 11/27/19 13:25 11/27/19 13:25 Labs: Laboratory Results - last 24 hr 11/27/19 14:18 COVID-19 PCR Negative Assessment & Plan Post-op Postoperative Procedures: Procedures Operation Date: 11/27/19 21:00 Actual Procedures Side Surgeon p Incision and Drainage FROM ABDOMINAL Wound/General Chuck Bello MD Postoperative day: 1 Postoperative status narrative: Doing as expected. Postoperative plan narrative: Continue broad-spectrum IV antibiotics. Wound not ready for wound VAC. Will need daily dressing change probably by MD. Encouraged patient ambulate.
[2019-11-28] MEDS: SODIUM CHLORIDE 0.9% 250 ML 21 ML IV (20:49)
[2019-11-29] VITALS (7 sets, daily range): BP systolic 105–139; BP diastolic 57–87; PULSE 69–82; RESP 16–18; TEMP 36.4–36.9; O2SAT 96–99
[2019-11-29] MEDS: CEFTRIAXONE 1 GM/50 ML FROZ.PIGGY IV ×2 (01:21→12:58)
--- NOTE | 2019-11-29 01:50 | PC.NURSE ---
ID augusto found on bedside table, pt reports that he cut it off because it was scratchy
[2019-11-29 06:03] LABS: Add Manual Diff / Slide Review NO; Basophils Absolute Auto 0 /uL (0-100); Basophils Percent Auto 0.3 % (0-2); Eosinophils Absolute Auto 0 /uL (0-450); Eosinophils Percent Auto 0.4 % (2-4); Hematocrit 39.5 % (41-53); Hemoglobin 13.3 g/dL (13.5-17.5); Lymphocytes Absolute Auto 2000 /uL (1100-4500); Lymphocytes Percent Auto 20.7 % (25-40); Mean Corpuscular HGB Conc 33.7 % (30-36); Mean Corpuscular Hemoglobin 30.4 PG (26-34); Mean Corpuscular Volume 90.1 fL (80-100); Monocytes Absolute Auto 900 /uL (0-900); Monocytes Percent Auto 9.1 % (3-14); Neutrophils Absolute Auto 6600 /uL (1500-7000); Neutrophils Percent Auto 69.5 % (50-75); Platelet Count 255 X10^3/uL (150-400); Red Blood Cell Count 4.39 X10^6/uL (4.5-5.9); Red Cell Distribution Width 13.3 % (11.6-14.8); White Blood Cell Count 9.4 X10^3/uL (4.5-11.0)
[2019-11-29] MEDS: metroNIDAZOLE 500 MG/100 ML PIGGYBACK 100 MG IV ×3 (06:48→22:55)
[2019-11-29] MEDS: OXYCODONE/ACETAMINOPHEN 5/325 TABLET 2 TAB PO ×3 (08:41→22:55)
[2019-11-29] MEDS: SODIUM CHLORIDE 0.9% FLUSH 10 ML IV ×4 (08:42→22:56)
[2019-11-29] MEDS: ENOXAPARIN 40 MG/0.4 ML SYRINGE SUBCUT (08:42)
--- NOTE | 2019-11-29 09:14 | CM.DANOTE ---
Addendum entered by Nichol Alcazar R.N. 11/29/19 13:36: Spoke to Marion at [facility], stated, [employer] should cover wound vac. Stated that information can be faxed over to her. Fax number is: [phone]. Will fax over face sheet, operative report, she is requesting wound measurements, but not yet readily available. Will fax wound measurements when completed. Addendum entered by Nichol Alcazar R.N. 11/29/19 13:25: Spoke to Dr. Colin, anticipates that patient may need to go home with wound vac. Called [facility], left message for automotive parts counter person, Marion. Called customer service number, and they faxed over a medical necessity form, but wound vac here is not yet in place. Will follow up with Marion at [facility] tomorrow, and may also contact Chani Maya at [facility]. It is uncertain at this time if [employer] will cover wound vac. Original Note: DCP: Case received, EMR reviewed. Did not meet patient, attempted to call room with no answer, as he is on isolation precautions. DCP assessment completed based on information readily available in chart. Patient is a 29 year old male who admitted on 11/26 in the afternoon to the care of the hospitalist/surgical team. PCP: George Graff. P[facility]: [facility]. Patient came to the hospital via private vehicle secondary to having fever, abdominal surgery for umbilical hernia repair. Patient had infection of the site, and had a surgical procedure with debridment of the wound. Wound is being packed, and is also on broad spectrum IV ABO. He does not have a PICC line at this time. It is unknown if patient will need a would vac. Have not been able to meet with patient, for he is in isolation. Attempted to call his room with no answer. According to history, patient is employed at [employer], he is independent, lives in [place], and is single. Note also indicates, patient is fearful of needles, and also has history of ADHD. P: DCP will follow closely for any needs before discharge. Will need to see if patient will be discharged on IV antibiotics, as well as wound vac. Nichol Alcazar RN/Finish Saw Operator
[2019-11-29] MEDS: SODIUM CHLORIDE 0.9% 250 ML 21 ML IV (12:57)
[2019-11-29] MEDS: HYDROMORPHONE 1 MG INJ IV ×2 (14:12→15:12)
--- NOTE | 2019-11-29 14:38 | CM.DPC ---
DCP Cont: Met with patient in his room. He is alert and oriented. Discussed discharge planning and potential wound vac. Patient stated, what's that, I have never heard of it. I thought that I would just wait until wound heals, they can then sow me up and I can go home. Let him know that his surgeon would discuss, but there is a possibility that he will discharge with a wound vac indicating that it would help promote healing. He wanted to know what it looks like, how big it is. Nurse, Flaca, explained approximately size of hospital wound vac, and let patient know that home wound vac would be smaller, but would promote healing of wound faster. Confirmed with patient that he resides alone, and works at [employer]. He does have a room mate at home, but is unsure about any wound care, as he is anxious about it. Had Dr. Colin sign a prescription for wound vac, and faxed it over to Page at [facility]. She indicated to fill out name, and length of 3 months for wound vac in case it is needed for a longer time. Sent this over, as well as face sheet, operative report, yesterday's note, and history and physical. P: DCP to follow closely. Will look for wound measurements and will fax over to [facility]. Nichol Alcazar RN/Strip Picker
--- NOTE | 2019-11-29 16:20 | PM.PNPO.1 ---
Subjective Subjective Date Patient Seen: 11/29/19 Time Patient Seen: 15:29 Interval history: The patient is a gentleman who had a an infection and an op site that was drained the operating room 2 days ago. He has localized discomfort but for the most part feels okay. Tolerating p.o. well. Exam Vital Signs (past 8 hours): - 11/29/19 12:26 11/29/19 15:50 Temperature 98.1 F 98.4 F Pulse Rate 77 79 Respiratory Rate 16 18 Blood Pressure 139/75 129/67 Pulse Oximetry 96 96 Oxygen Delivery Method Room Air Oxygen Flow Rate 0 Narrative Exam Narrative: I removed his packing. Much less drainage than yesterday. The wound looks fairly healthy. It is difficult for me to see all the way into the depth our ever. The wound itself is an odd leash a port incision but it goes 7 cm deep is 7 cm wide and 8 cm superior to inferior. His lungs are clear. Heart regular rate and rhythm. No cellulitis of his abdominal wall. Objective Labs Result Diagrams: 11/29/19 05:10 11/27/19 13:25 Labs: Laboratory Results - last 24 hr 11/29/19 05:10 WBC 9.4 RBC 4.39 L Hgb 13.3 L Hct 39.5 L MCV 90.1 MCH 30.4 MCHC 33.7 RDW 13.3 Plt Count 255 Neut % (Auto) 69.5 Lymph % (Auto) 20.7 L Canadian % (Auto) 9.1 Eos % (Auto) 0.4 L Baso % (Auto) 0.3 Neut # (Auto) 6600 Lymph # (Auto) 2000 Canadian # (Auto) 900 Eos # (Auto) 0 Baso # (Auto) 0 Assessment & Plan Post-op Postoperative Procedures: Procedures Operation Date: 11/27/19 21:00 Actual Procedures Side Surgeon p Incision and Drainage FROM ABDOMINAL Wound/General Chuck Bello MD Postoperative status: doing well Postoperative status narrative: Awaiting culture results. This appears that it may be and anaerobic infection. G stain suggest g positive and negatives in the wound which is a little unusual but certainly not out of the question. The aerobic culture thus far has no growth. Postoperative plan narrative: The wound was repacked after removing the old dressing. Patient may go to the operating room for a wound VAC tomorrow depending upon availability of the device. I think a wound VAC would be especially helpful in this patient because of the significant depth of this wound, its small size of it skin incision, and help poorly he tolerates dressing changes.
[2019-11-30] VITALS (13 sets, daily range): BP systolic 119–155; BP diastolic 74–107; PULSE 75–86; RESP 12–19; TEMP 36–36.9; O2SAT 95–98; BMI 38.5
[2019-11-30] MEDS: CEFTRIAXONE 1 GM/50 ML FROZ.PIGGY IV ×2 (00:35→11:57)
--- NOTE | 2019-11-30 01:30 | PC.NURSE ---
Seen and assessed at 2359. Is alert and oriented. Breath sounds CTA with RA sat of 97%. HRR. Denies nausea. BT present and abdomen is soft. Dressing to abdomen is CDI. Is voiding without dysuria, frequency or urgency. Is independent with mobility. Refusing to wear SCD's as they keep me awake. On contact isolation as wound culture results are not yet back. NPO for impending surgery in a.m. Fall risk score is low.
[2019-11-30] MEDS: metroNIDAZOLE 500 MG/100 ML PIGGYBACK 100 MG IV ×2 (06:41→13:52)
[2019-11-30] MEDS: SODIUM CHLORIDE 0.9% FLUSH 10 ML IV (06:41)
[2019-11-30] MEDS: ENOXAPARIN 40 MG/0.4 ML SYRINGE SUBCUT (08:57)
--- NOTE | 2019-11-30 09:03 | CM.DPC ---
Addendum entered by Nichol Alcazar R.N. 11/30/19 14:51: Confirmed with Page at [facility] that wound vac placed here will be the one he will go home with. Stated, authorization has gone through. Patient may be discharging this pm with his wound vac. Original Note: DCP: Sent over 11/28 progress note which includes wound measurement. Faxed over to Ana Lilia at [facility], and let her know via phone. She is working on authorization with patient's insurance company for wound vac. P: DCP to continue to follow. Will follow up again with Ana Lilia at [facility] on authorization. Nichol Alcazar RN/Environmental Auditor
--- NOTE | 2019-11-30 13:28 | PC.NURSE ---
Day shift: Surgery orders placed by MD but Pt not in surgery at this time. Will let surgery RN acknowledge thos orders and complete on the worklist. Pt doing well. Tolerating being NPO. IV antibiotics given per MAY. IV site remains patent. Dressing over ABD wound intact with shadow drainage present. Per Dr Beckman Pt will wound vac placed today and then be able to go home. Pt is aware of this as well. Call light in reach.
--- NOTE | 2019-11-30 14:54 | PC.NURSE ---
Day shift: Pt off unit for wound-vac placement at this time ([id number]). IV Flagyl bag did not finish before Pt was taken by surgery RN's.
[2019-11-30] MEDS: LACTATED RINGERS 1,000 ML 42 ML IV (15:17)
--- NOTE | 2019-11-30 15:41 | PM.PREOP ---
Pre-operative Note COVID-19 COVID-19 status: Negative Interval Note History & Physical reviewed/Exam performed by Physician: Yes Changes to H&P: Yes
[2019-11-30] MEDS: BUPIVACAINE 0.25% (PF) VIAL 30 ML INJ (16:07)
--- NOTE | 2019-11-30 16:20 | PM.OP.1 ---
Operative Date/Time/Diagnoses Date of procedure: 11/30/19 Time of procedure: 16:20 Pre-op diagnosis: wound infection Post-op diagnosis: same Procedure & Clinicians Procedure: Wound VAC placement Same procedure as scheduled: Yes Indications: 29-year-old male had a umbilical hernia repair done week ago developed a subsequent infection was taken to the operating room 2 days ago for an wound exploration and debridement. He he returns today for a wound VAC placement Surgeon: Martín Beckman Anesthesia Type: General Operative Notes Findings: Clean wound. Some discoloration of the fashion the inferior aspect of the wound but is there is no necrotic tissue no purulence. Specimen(s): none sent Estimated Blood Loss (mL): 10 Procedure in detail: Patient was brought to the operating room placed supine on the table. Bilateral lower extremity compression devices were applied. He received Ancef and Flagyl prior to the procedure. General anesthesia was induced he was intubated with an LMA. He was prepped and draped in sterile fashion. Time-out was performed. The wound was undressed. Local anesthetic was infiltrated into the skin. The wound was explored. There was no purulence and the fascia was viable there was some discoloration on the fascia at the inferior aspect of the wound but there was no necrotic tissue. There was healthy bleeding granulating tissue within the gallego of the cavity. The wound measured 5 x 5 x 4 cm. Two pieces of black foam were placed into the wound cavity and the wound VAC was fashioned. He emerged from anesthesia was extubated and transferred recovery room in stable in stable condition Complications: none Post-operative Condition: stable Disposition: same day surgery
[2019-11-30] MEDS: OXYCODONE/ACETAMINOPHEN 5/325 TABLET 1 TAB PO (16:40)
[2019-11-30] MEDS: OXYCODONE/ACETAMINOPHEN 5/325 TABLET 2 TAB PO (19:20)
--- NOTE | 2019-11-30 19:28 | PC.NURSE ---
Addendum entered by Breana Cadena R.N. 11/30/19 19:31: IV dc'd. pt escorted to the ED exit via wheelchair. Original Note: discharge instruction given to patient. all belongings returned to patient. pt aware he needs to call providers office tomorrow. suction set to 125cc continuous. wound vac instruction given to patient and friend.
--- NOTE | 2019-12-01 11:20 | PM.DS.1 ---
History of Present Illness History of Present Illness Date Patient Seen: 12/01/19 Time Patient Seen: 11:21 Chief complaint: Fever/Abdominal Pain post surgery Narrative: This is a 29-year-old male who underwent an elective umbilical hernia repair 11/23/2019. 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 He presented to the emergency room 4 days after his hernia repair with a wound infection. Discharge Providers Provider Date of admission: 11/27/19 14:21 Discharge Date: 11/30/19 Primary care physician: NICA Ga Consults: 11/27/19 15:52 Consult to Discharge Planning Routine Comment: Discharge provider: Martín Beckman MD Summary Hospital Course Discharge Diagnosis: Acute on chronic wound infection Obesity Hospital Course: He is taken to the operating room on 11/26 underwent a wound exploration which demonstrated some necrotic soft tissue at the umbilicus. This was debrided cultures were taken which demonstrate Group A Strep there was also gram negative rods on gram stain. He was brought back to the OR 11/29 a wound vac was placed at the umbilicus as he was unable to tolerate the dressing changes at bedside. Status at Discharge Cognitive/behavioral status at discharge: oriented Functional status at discharge: independent ambulation Time Spent with Patient Time spent: Greater than 30 minutes Exam Vital Signs (past 8 hours): Oxygen Delivery Method Room Air Oxygen Flow Rate 0 Narrative Exam Narrative: General adult male alert oriented no acute distress Abdomen appropriately tender to palpation in wound VAC is holding suction at the umbilicus. Objective Labs Result Diagrams: 11/29/19 05:10 11/27/19 13:25 Discharge Plan Discharge Plan Patient Disposition: Home Discharge comment: Please call the provider's office tomorrow to make an appointment. Okay to shower. Please keep wound clean and dry. pt may take tylenol and ibuprophen for pain. Discharge orders & Medications Prescriptions: New cephalexin 750 mg capsule 750 mg PO BID Qty: 20 RF: 0 metronidazole 500 mg tablet 500 mg PO TID Qty: 30 RF: 0 oxycodone 5 mg tablet 5 mg PO Q6H PRN (Reason: pain) Qty: 30 RF: 0 Continued acetaminophen [Tylenol] 325 mg capsule 650 mg PO QID PRN (Reason: pain) Qty: 60 RF: 0 oxycodone 5 mg tablet 5 mg PO Q6H PRN (Reason: pain) Qty: 30 RF: 0 Follow up/Referrals: George Graff ARNP [Primary Care Provider] - Martín Beckman MD [Physician] - 12/02/19 Diet/Activity/Treatments Diet: Regular Skin/Wound/Dressing Care Report to your healthcare provider any signs of infection, such as:: chills, fever and increased pain Visit Report/Discharge Packet Instructions: DI for Prescription Opioid Use, DI for Incision and Drainage, [facility]: Wound Care Visit Report Forms: Patient Portal/API, Stroke Signs & Symptoms Discharge Data Primary Care Provider: George Graff Discharges patient from system. Discharge Date/Time: 11/30/19 19:26
== END 2019-11-30 19:26 | disposition home or self-care (01) | DRG 721 ==
LOC: ED 14:20 → AC 19:17
PROVIDERS: Surgery; Admitting Provider Specialist; Emergency Provider Emergency Medicine; PCP Nurse Practitioner Family; Referring Provider Emergency Medicine; Visit Provider Specialist
PROC: 0JB80ZZ Excision of Abdomen Subcutaneous Tissue and Fascia, Open Approach (ICD-10-PCS; principal; 2019-11-27 21:00)
PROC: 2W13X6Z Compression of Abdominal Wall using Pressure Dressing (ICD-10-PCS; principal; 2019-11-30 16:30)
DX: T81.42XA Infection following a procedure, deep incisional surgical site, initial encounter (principal); I96 Gangrene, not elsewhere classified; E66.01 Morbid (severe) obesity due to excess calories; L03.311 Cellulitis of abdominal wall; Z68.39 Body mass index [BMI] 39.0-39.9, adult; B95.0 Streptococcus, group A, as the cause of diseases classified elsewhere; Z11.59 Encounter for screening for other viral diseases
CPT/HCPCS: 36415; 36592; 71045; 74177; 80053; 83605; 83690; 84145; 85025; 85610; 85730; 87040; 87070; 87075; 87077; 87205; 87635; 93005; 96365; 99284; J0690; J0696; J1100; J1170; J1650; J1885; J2250; J2405; J2543; J2704; J3010; Q9967

== ENCOUNTER → 2019-12-03 12:09 | Outpatient (CLI) | payer OTHER, MEDICAID, SELFPAY ==
[2019-11-27 15:43] VITALS: BMI 39.8
== END ==
PROVIDERS: Family Provider Nurse Practitioner Family; PCP Nurse Practitioner Family; Referring Provider Surgery; Visit Provider Family Medicine
DX: S31.105A Unspecified open wound of abdominal wall, periumbilic region without penetration into peritoneal cavity, initial encounter (principal); Z48.01 Encounter for change or removal of surgical wound dressing; R52 Pain, unspecified
CPT/HCPCS: 99203; 99213

== ENCOUNTER 2019-12-03 12:20 | Emergency (ER) | payer OTHER, MEDICAID, SELFPAY ==
[2019-11-27 15:43] VITALS: BMI 39.8
[2019-12-03 12:34] VITALS: BP 123/78; PULSE 88; RESP 18; TEMP 36.9; O2SAT 99; BMI 38.7
[2019-12-03] MEDS: fentaNYL 100 MCG/2 ML INJ (12:40)
[2019-12-03] MEDS: ONDANSETRON 4 MG/2 ML INJ (12:40)
--- NOTE | 2019-12-03 13:29 | ED_ITS ---
HPI - Wound/Laceration General Chief Complaint: Wound/Laceration Stated Complaint: sponge in wound of stomach Time Seen by Provider: 12/03/19 12:25 Source: patient Mode of arrival: Family Vehicle Limitations: no limitations History of Present Illness HPI narrative: Patient sent here from wound office clinic for pain medicine in order to remove wound packing. I spoke with Dr. Ayoub as well as Dr Beckman...Dr Ayoub at bedside as well. Patient status post wound debridement this past week. Being seen in the wound clinic today but having difficulty removing the black foam packing. Patient had wound VAC as well. However according to wound care physician no replacement of the wound VAC today. Patient needing IV pain medication to tolerate removal of this black foam packing. Wound care provider at bedside Related Data Previous Rx's Medication Instructions Recorded acetaminophen [Tylenol] 650 mg PO QID PRN #60 cap 11/23/19 oxycodone 5 mg PO Q6H PRN #30 tab 11/23/19 cephalexin 750 mg PO BID #20 cap 11/30/19 metronidazole 500 mg PO TID #30 tab 11/30/19 oxycodone 5 mg PO Q6H PRN #30 tab 11/30/19 Allergies Allergy/AdvReac Type Severity Reaction Status Date / Time No Known Drug Allergies Allergy Verified 12/03/19 12:37 Review of Systems Review of Systems Narrative: GENERAL: Denies chills, fatigue, malaise, fever, sweats. HEENT: Denies sinus pain, ear pain, sore throat, difficulty swallowing, dizz iness. RESPIRATORY: Denies dyspnea, cough, wheezing, hemoptysis, sputum. CARDIOVASCULAR: Denies chest pain, palpitations, orthopnea, edema, GASTROINTESTINAL: Denies nausea, vomiting, complains abdominal pain at the wound, denies diarrhea, constipation, melena. : Denies dysuria, frequency, incontinence, hematuria, urinary retention. MUSCULOSKELETAL: denies weakness, joint pain, or bony pain SKIN: Denies rash, skin lesions NEUROLOGIC: Denies weakness, headache, numbness, change in speech, confusion, seizures, incoordination. PSYCHIATRIC: No concerning psychosocial issues. ROS Unobtainable: All systems reviewed & are unremarkable except as noted in HPI and below Patient History Medical History ADHD (Chronic) Cellulitis (Acute) Obesity (Acute) Surgical History Anesthesia (Resolved) History of abdominoplasty (Resolved) Social History household members: friend(s) Smoking Status: Former smoker alcohol intake: current Smoking Status: Former smoker tobacco type: cigarettes alcohol intake frequency: holidays/special occasions only Substance Use Type: marijuana Exam Narrative Exam Narrative: GENERAL: patient appears stated age. Well-nourished, well- developed patient, in no distress, not toxic HEAD: Atraumatic. Normocephalic. GASTROINTESTINAL: Abdomen soft, there is a black foam packing at the base of the abdominal wall in wound. After IV pain medication that patient tolerated very well with fentanyl, 20 mL of normal saline injected into the foam area to loosen it from the surrounding granulation tissue. Used sterile needle long haul truck driver to slowly extract the foam in 1 complete piece. Examination of the foam shows it was completely intact. Visualized the wound and did not see any remaining foam at the base. Replace with Aquacel provided by wound care provider at bedside, no bleeding. Applied dressing bandage provided by wound care provider at bedside NEURO: AOx4. SKIN: No rash or erythema of visible areas PSYCH: Not anxious, is cooperative Initial Vital Signs Initial Vital Signs: Vital Signs Temperature 98.4 F 12/03/19 12:34 Pulse Rate 88 12/03/19 12:34 Respiratory Rate 18 12/03/19 12:34 Blood Pressure 123/78 12/03/19 12:34 Pulse Oximetry 99 12/03/19 12:34 Course Course Course Narrative: Patient tolerated procedure well. Reevaluation(s) Reevaluation #1: Not toxic at discharge. Pain controlled. No bleeding. Vital Signs Vital signs: Vital Signs - 8 hr 12/03/19 12:34 12/03/19 13:56 Temperature 98.4 F Pulse Rate 88 94 H Respiratory Rate 18 18 Blood Pressure 123/78 114/74 Pulse Oximetry 99 99 MDM - Wound/Laceration MDM Narrative Medical decision making narrative: No blood work or imaging indicated, not request by wound care provider or surgeon Discharge Plan Departure Patient Disposition: Home Clinical Impression: Change or removal of surgical wound dressing Discharge Date/Time: 12/03/19 13:58 Instructions: DI for Wound Infection Activity Restrictions/Additional Instructions: See Dr Ayoub on Friday as scheduled. Continue wound instructions as he gave you today. Return if worse or any questions concerns. Prescriptions: No Action acetaminophen [Tylenol] 325 mg capsule 650 mg PO QID PRN (Reason: pain) Qty: 60 RF: 0 oxycodone 5 mg tablet 5 mg PO Q6H PRN (Reason: pain) Qty: 30 RF: 0 cephalexin 750 mg capsule 750 mg PO BID Qty: 20 RF: 0 metronidazole 500 mg tablet 500 mg PO TID Qty: 30 RF: 0 oxycodone 5 mg tablet 5 mg PO Q6H PRN (Reason: pain) Qty: 30 RF: 0 Referrals: George Graff ARNP [Primary Care Provider] -
[2019-12-03 13:56] VITALS: BP 114/74; PULSE 94; RESP 18; O2SAT 99
== END 2019-12-03 13:58 | disposition home or self-care (01) ==
PROVIDERS: Emergency Provider Emergency Medicine; Family Provider Nurse Practitioner Family; PCP Nurse Practitioner Family
DX: R10.9 Unspecified abdominal pain (principal); Z48.01 Encounter for change or removal of surgical wound dressing
CPT/HCPCS: 96374; 96375; 99213; 99281; 99284; J2405; J3010

== ENCOUNTER → 2019-12-06 09:23 | Outpatient (CLI) | payer OTHER, MEDICAID, SELFPAY ==
[2019-11-27 15:43] VITALS: BMI 39.8
== END ==
PROVIDERS: Family Provider Nurse Practitioner Family; PCP Nurse Practitioner Family; Referring Provider Nurse Practitioner Family; Visit Provider Family Medicine
DX: S31.105A Unspecified open wound of abdominal wall, periumbilic region without penetration into peritoneal cavity, initial encounter (principal)
CPT/HCPCS: 97605; 99213

== ENCOUNTER → 2019-12-09 14:57 | Outpatient (CLI) | payer OTHER, MEDICAID, SELFPAY ==
[2019-11-27 15:43] VITALS: BMI 39.8
== END ==
PROVIDERS: Family Provider Nurse Practitioner Family; PCP Nurse Practitioner Family; Referring Provider Surgery; Visit Provider Family Medicine
DX: T81.31XA Disruption of external operation (surgical) wound, not elsewhere classified, initial encounter (principal); S31.102A Unspecified open wound of abdominal wall, epigastric region without penetration into peritoneal cavity, initial encounter
CPT/HCPCS: 97605

== ENCOUNTER → 2019-12-13 11:35 | Outpatient (CLI) | payer OTHER, MEDICAID, SELFPAY ==
[2019-11-27 15:43] VITALS: BMI 39.8
== END ==
PROVIDERS: Family Provider Nurse Practitioner Family; PCP Nurse Practitioner Family; Referring Provider Nurse Practitioner Family; Visit Provider Family Medicine
DX: S31.105A Unspecified open wound of abdominal wall, periumbilic region without penetration into peritoneal cavity, initial encounter (principal)
CPT/HCPCS: 97605; 99213

== ENCOUNTER → 2019-12-16 11:27 | Outpatient (CLI) | payer OTHER, MEDICAID, SELFPAY ==
[2019-11-27 15:43] VITALS: BMI 39.8
== END ==
PROVIDERS: Family Provider Nurse Practitioner Family; PCP Nurse Practitioner Family; Referring Provider Nurse Practitioner Family; Visit Provider Family Medicine
DX: T81.31XA Disruption of external operation (surgical) wound, not elsewhere classified, initial encounter (principal); S31.102A Unspecified open wound of abdominal wall, epigastric region without penetration into peritoneal cavity, initial encounter
CPT/HCPCS: 97605

== ENCOUNTER → 2019-12-20 14:15 | Outpatient (CLI) | payer OTHER, MEDICAID, SELFPAY ==
[2019-11-27 15:43] VITALS: BMI 39.8
== END ==
PROVIDERS: Family Provider Nurse Practitioner Family; PCP Nurse Practitioner Family; Referring Provider Nurse Practitioner Family; Visit Provider Family Medicine
DX: S31.105A Unspecified open wound of abdominal wall, periumbilic region without penetration into peritoneal cavity, initial encounter (principal)
CPT/HCPCS: 97605; 99213

== ENCOUNTER → 2019-12-23 15:15 | Outpatient (CLI) | payer OTHER, MEDICAID, SELFPAY ==
[2019-11-27 15:43] VITALS: BMI 39.8
== END ==
PROVIDERS: Family Provider Nurse Practitioner Family; PCP Nurse Practitioner Family; Referring Provider Nurse Practitioner Family; Visit Provider Family Medicine
DX: T81.31XA Disruption of external operation (surgical) wound, not elsewhere classified, initial encounter (principal); S31.102A Unspecified open wound of abdominal wall, epigastric region without penetration into peritoneal cavity, initial encounter
CPT/HCPCS: 97605

== ENCOUNTER → 2019-12-27 14:26 | Outpatient (CLI) | payer OTHER, MEDICAID, SELFPAY ==
[2019-11-27 15:43] VITALS: BMI 39.8
== END ==
PROVIDERS: Family Provider Nurse Practitioner Family; PCP Nurse Practitioner Family; Referring Provider Surgery; Visit Provider Family Medicine
DX: S31.105A Unspecified open wound of abdominal wall, periumbilic region without penetration into peritoneal cavity, initial encounter (principal)
CPT/HCPCS: 11042; 97605

== ENCOUNTER → 2019-12-30 15:50 | Outpatient (CLI) | payer OTHER, MEDICAID, SELFPAY ==
[2019-11-27 15:43] VITALS: BMI 39.8
== END ==
PROVIDERS: Family Provider Nurse Practitioner Family; PCP Nurse Practitioner Family; Referring Provider Nurse Practitioner Family; Visit Provider Family Medicine
DX: T81.31XA Disruption of external operation (surgical) wound, not elsewhere classified, initial encounter (principal); S31.102A Unspecified open wound of abdominal wall, epigastric region without penetration into peritoneal cavity, initial encounter
CPT/HCPCS: 97605

== ENCOUNTER → 2020-01-03 12:09 | Outpatient (CLI) | payer OTHER, MEDICAID, SELFPAY ==
[2019-11-27 15:43] VITALS: BMI 39.8
== END ==
PROVIDERS: Family Provider Nurse Practitioner Family; PCP Nurse Practitioner Family; Referring Provider Nurse Practitioner Family; Visit Provider Family Medicine
DX: S31.105A Unspecified open wound of abdominal wall, periumbilic region without penetration into peritoneal cavity, initial encounter (principal)
CPT/HCPCS: 11042; 97605

== ENCOUNTER → 2020-01-06 15:40 | Outpatient (CLI) | payer OTHER, MEDICAID, SELFPAY ==
[2019-11-27 15:43] VITALS: BMI 39.8
== END ==
PROVIDERS: Family Provider Nurse Practitioner Family; PCP Nurse Practitioner Family; Referring Provider Surgery; Visit Provider Family Medicine
DX: T81.31XA Disruption of external operation (surgical) wound, not elsewhere classified, initial encounter (principal); S31.102A Unspecified open wound of abdominal wall, epigastric region without penetration into peritoneal cavity, initial encounter
CPT/HCPCS: 97605

== ENCOUNTER → 2020-01-10 11:40 | Outpatient (CLI) | payer OTHER, MEDICAID, SELFPAY ==
[2019-11-27 15:43] VITALS: BMI 39.8
== END ==
PROVIDERS: Family Provider Nurse Practitioner Family; PCP Nurse Practitioner Family; Referring Provider Nurse Practitioner Family; Visit Provider Family Medicine
DX: S31.105A Unspecified open wound of abdominal wall, periumbilic region without penetration into peritoneal cavity, initial encounter (principal)
CPT/HCPCS: 11042; 99212

== ENCOUNTER → 2020-01-17 11:16 | Outpatient (CLI) | payer OTHER, MEDICAID, SELFPAY ==
[2019-11-27 15:43] VITALS: BMI 39.8
== END ==
PROVIDERS: Family Provider Nurse Practitioner Family; PCP Nurse Practitioner Family; Referring Provider Surgery; Visit Provider Family Medicine
DX: S31.105A Unspecified open wound of abdominal wall, periumbilic region without penetration into peritoneal cavity, initial encounter (principal)
CPT/HCPCS: 99212; 99213

== ENCOUNTER → 2020-01-24 11:01 | Outpatient (CLI) | payer OTHER, MEDICAID, SELFPAY ==
[2019-11-27 15:43] VITALS: BMI 39.8
== END ==
PROVIDERS: Family Provider Nurse Practitioner Family; PCP Nurse Practitioner Family; Referring Provider Nurse Practitioner Family; Visit Provider Family Medicine
DX: S31.105A Unspecified open wound of abdominal wall, periumbilic region without penetration into peritoneal cavity, initial encounter (principal)
CPT/HCPCS: 99211; 99212

== ENCOUNTER 2022-11-14 16:01 | Emergency (ER) | payer OTHER, MEDICAID, SELFPAY ==
[2019-11-27 15:43] VITALS: BMI 39.8
[2022-11-14 16:04] VITALS: BP 113/78; PULSE 92; RESP 18; TEMP 36.6; O2SAT 99; BMI 33.0
--- NOTE | 2022-11-14 16:49 | ED_ITS ---
HPI - Headache General Chief Complaint: Headache Stated Complaint: Migraine ongoing t-45 Time Seen by Provider: 11/14/22 16:37 Mode of arrival: Ambulatory History of Present Illness HPI Narrative: This is a 32-year-old male presents emergency department due to an intermittent migraine over the last month and a half. He has been taking Excedrin without significant relief. He describes the pain beginning to his posterior head at the base of his skull and radiating to the top. Denies any or as including visual changes, abnormal smells, normal taste. Denies any trauma. States that the head pain is [id number]. Denies any slurred speech, facial drooping, weakness, dizziness, or any other concerning signs or symptoms. Related Data Previous Rx's Medication Instructions Recorded cyclobenzaprine 10 mg tablet 10 mg PO TID #30 tabs 11/14/22 sumatriptan succinate 50 mg tablet See Rx Instructions PO .COMPLEX 11/14/22 #10 tabs Allergies Allergy/AdvReac Type Severity Reaction Status Date / Time No Known Drug Allergies Allergy Verified 05/09/20 15:52 Review of Systems Review of Systems Narrative: GENERAL: Denies chills, fatigue, malaise, fever, sweats. HEENT: Reports headache Denies sinus pain, ear pain, sore throat, difficulty swallowing, dizziness. RESPIRATORY: Denies dyspnea, cough, wheezing, hemoptysis, sputum. CARDIOVASCULAR: Denies chest pain, palpitations, orthopnea, edema, GASTROINTESTINAL: Denies nausea, vomiting, abdominal pain, diarrhea, constipation, melena. : Denies dysuria, frequency, incontinence, hematuria, urinary retention. MUSCULOSKELETAL: denies weakness, joint pain, or bony pain SKIN: Denies rash, skin lesions, or other NEUROLOGIC: Denies weakness, headache, numbness, change in speech, confusion, seizures, incoordination. PSYCHIATRIC: No concerning psychosocial issues. 12 point review of systems is negative except for those stated above Patient History Medical History (Updated 11/14/22 @ 17:31 by Sergey Chavira PA-C) ADHD Cellulitis Obesity Surgical History Anesthesia History of abdominoplasty Social History household members: friend(s) Smoking Status: Former smoker alcohol intake: current Smoking Status: Former smoker tobacco type: cigarettes alcohol intake frequency: holidays/special occasions only Substance Use Type: marijuana Exam Narrative Exam Narrative: GENERAL: Well-developed patient, in mild distress. HEAD: Atraumatic. Normocephalic. EYES: Pupils equal round and reactive. Extraocular motions intact. No scleral icterus. No injection or drainage. ENT: Nose without bleeding, purulent drainage. Throat without erythema, tonsillar hypertrophy or exudate. Airway patent. NECK: Trachea midline. Non tender CARDIOVASCULAR: Regular rate and rhythm without murmurs, gallops, or rubs. RESPIRATORY: Clear to auscultation. Breath sounds equal bilaterally. No wheezes, rales, or rhonchi. GASTROINTESTINAL: Abdomen soft, non-tender, nondistended. EXTREMITIES: No edema or joint tenderness. BACK: Nontender without deformity or crepitance. No flank tenderness. NEURO: AOx3. Cranial nerves 2-12 intact SKIN: No rash or erythema of visible areas Initial Vital Signs Initial Vital Signs: Vital Signs Temperature 97.8 F 11/14/22 16:04 Pulse Rate 92 H 11/14/22 16:04 Respiratory Rate 18 11/14/22 16:04 Blood Pressure 113/78 11/14/22 16:04 Pulse Oximetry 99 11/14/22 16:04 Oxygen Delivery Method Room Air 11/14/22 16:04 Course Vital Signs Vital signs: Vital Signs - 8 hr 11/14/22 16:04 Temperature 97.8 F Pulse Rate 92 H Respiratory Rate 18 Blood Pressure 113/78 Pulse Oximetry 99 Oxygen Delivery Method Room Air MDM - Headache MDM Narrative Medical decision making narrative: MDM * differential diagnosis includes but not limited to intracranial bleed, migraine with aura, tension headache, cluster headache, muscular skeletal strain * Prior records reviewed:Patient was seen here 3 years ago for a unrelated complaint. History of ADHD. * My lab interpretation: None obtained * My imaging interpretation: None obtained * Clinical Decision Rules/Scores evaluated: None * Independent discussions with: None ED Course: This is a 32-year-old male presents emergency department due to susp ected tension headache as described by the symptoms he was experiencing. Patient did not present with any neurologic changes and did not describe having the worst headache of his life and low concern for any kind of intracranial bleed and no imaging ordered. Patient has been using Excedrin without significant relief. Recommend ibuprofen Tylenol as well as muscle relaxants and sumatriptan will be prescribed. Recommended follow up with primary care provider for long-term management if his symptoms continue. Shared Decision Making: Discussed plan with patient who is comfortable with the plan. Social Considerations: None Disposition: Discharged home Discharge Plan Departure Patient Disposition: Home Clinical Impression: Headache Activity Restrictions/Additional Instructions: Thank you for coming to the [facility] today. I suspect that the headache maybe caused her increased stress in her life as well as increased tension that maybe causing the pain as I have described to you. Please use ibuprofen and Tylenol as needed for the pain. You may also use these muscle relaxants which may help. Please use the Triptan medication as a last resort. Please follow up with the primary care provider for long-term management of your symptoms. I sent your medication to [facility]. I hope you feel better soon. Please follow up with your primary care provider within a week. If you do not have a primary care provider please contact the [facility] Resource line at [phone]. They will ask some questions about your medical history and help you get set up with a provider in the community. Prescriptions: New cyclobenzaprine 10 mg tablet 10 mg PO TID Qty: 30 0RF sumatriptan succinate 50 mg tablet See Rx Instructions .ROUTE .COMPLEX Qty: 10 0RF Rx Instructions: take 1 tab at onset of headache; if no relief may repeat 1 tab after at least 2 hrs; max = 4 tabs/24 hr Stand Alone Forms: Patient Portal/API
[2022-11-14 17:37] VITALS: BP 129/97; PULSE 86; O2SAT 96
== END 2022-11-14 17:37 | disposition home or self-care (01) ==
PROVIDERS: Emergency Provider Physician Assistant Medical
DX: R51.9 Headache, unspecified (principal)
CPT/HCPCS: 99281; 99282

== ENCOUNTER → 2023-04-22 12:31 | Outpatient (CLI) | payer OTHER, MEDICAID, SELFPAY ==
[2019-11-27 15:43] VITALS: BMI 39.8
[2023-04-22 13:14] LABS: Influenza A - CEPHEID Flu A NEGATIVE (NEGATIVE); Influenza B - CEPHEID Flu B NEGATIVE (NEGATIVE); Respiratory Syncytial Virus POSITIVE (Negative)
[2023-04-22 13:23] LABS: COVID-19 CEPHEID 4-PLEX PCR Negative (Negative)
== END ==
PROVIDERS: Visit Provider Physician Assistant Surgical
DX: R05.1 Acute cough (principal); J02.9 Acute pharyngitis, unspecified
CPT/HCPCS: 0241U; 87070; 87880